=== PATIENT | female | born 1965 | race Caucasian/White ===

== ENCOUNTER 2019-03-11 13:47 | Emergency (ER) | payer OTHER ==
[~2019-03-11] VITALS: Ht 170.2 cm; Wt 72.7 kg
[2019-03-11] MEDS ORDERED: TETanus/Pertussis (Acell)/Diphther VAC/PF (Tdap-Adult) 0.5ml syringe IM ONE (14:15)
[2019-03-11] MEDS ORDERED: LIDOcaine 1% 30ml preserv. free vial IJ ONE (14:15)
[2019-03-11] MEDS ORDERED: ketamine 10mg/ml 20ml inj IV ONE (16:00)
[2019-03-11] MEDS ORDERED: cephalexin 250mg capsule PO ONE (17:15)
[2019-03-11] MEDS ORDERED: HYDR-3965 PO (17:23)
[2019-03-11] MEDS ORDERED: CEPH500C5 PO (17:23)
[2019-03-11] MEDS ORDERED: ondansetron/PF 4mg/2ml inj IV ONE (17:35)
--- NOTE | 2019-03-11 18:07 | NUR ---
PATIENT TOLERATED MODERATE SEDATION WELL. HAS RETURNED TO BASELINE EXCEPT FOR SOME NAUSEA. MEDICATED WITH ZOFRAN WITH SOME RELIEF.
[2019-03-11] MEDS ORDERED: proCHLORperazine 10 MG/2 ml inj IV ONE (18:10)
--- NOTE | 2019-03-11 18:11 | NUR ---
OBTAINED ORDER FOR SOME COMPAZINE.
--- NOTE | 2019-03-11 18:21 | NUR ---
wrapped toe with xeroform gauze and coban per . reported off to Darin ROMERO
--- NOTE | 2019-03-11 18:30 | NUR ---
PT HAD APPROX 200ML CLEAR YELLOW EMESIS PRIOR TO GETTING MEDICATED WITH COMPAZINE. WAITING TO GIVE PO ABX TO MAKE SURE NAUSEA IS UNDER CONTROL.
[2019-03-11 19:10] VITALS: BP 120/56
== END 2019-03-11 19:22 | disposition home or self-care (01) ==
LOC: ER 13:48
DX: S92.421B Displaced fracture of distal phalanx of right great toe, initial encounter for open fracture (principal); Z79.2 Long term (current) use of antibiotics; Z79.899 Other long term (current) drug therapy; W18.39XA Other fall on same level, initial encounter; Y93.89 Activity, other specified; Y92.89 Other specified places as the place of occurrence of the external cause; Y99.8 Other external cause status
CPT/HCPCS: 11760; 73660; 90471; 90715; 96374; 96375; 99152; 99285; J0780; J2001; J2405; 11750; 12001

== ENCOUNTER 2019-04-02 11:49 | Outpatient (CLI) | payer OTHER ==
[~2019-04-02 11:49] MED LIST: CEPH500C5 PO; HYDR-3965 PO
== END 2019-04-02 12:42 | disposition home or self-care (01) ==
LOC: ORTHO 11:49
PROVIDERS: ATTEND Orthopaedic Surgery
DX: S92.421D Displaced fracture of distal phalanx of right great toe, subsequent encounter for fracture with routine healing (principal); X58.XXXD Exposure to other specified factors, subsequent encounter
CPT/HCPCS: 73660; G0463